=== PATIENT | female | born 1950 | race Caucasian/White ===

== ENCOUNTER → 2016-08-01 | Outpatient (CLI) | payer MEDICARE ==
[~2016-08-01] MED LIST: NO MEDICATIONS
--- NOTE | ~2016-08-01 | ST ---
Unit #: [id number] #: [id number] Patient: GEM HARGROVE [id number] [address] [address] [id number] O MR#: [id number] NAME: GEM HARGROVE : 1950 SEX: F STUDY DATE/TIME: UNIT: [facility] ROOM: STUDY DESCRIPTION: Stress Test Attending Physician: César Witt M.D. Referring Physician: César Witt M.D. Primary Care Physician: Yoan Elkins M.D. CARDIOLOGY REPORT EXAM Walking Lexiscan Cardiolite Stress Test DESCRIPTION Baseline EKG - normal sinus rhythm with ventricular rate 75 beats/minute, first degree AV block, Q waves in V1 and V2, left ventricular hypertrophy, repolarization, some ST-T wave elevation, some poor R wave progression, some nonspecific ST-T wave abnormalities in inferior lateral leads. Lexiscan is a four minute test with Lexiscan being injected within the first minute followed by Cardiolite. EKG during the test continues to show some ST-T wave abnormalities, especially in lateral leads. Had a 0.[address] depression in lateral leads. The patient had no complaints of chest pain or palpitations. Did complain of some dizziness. Blood pressure dropped from 122/82 to 98/60 mmHg. At the end of recovery phase, patient's blood pressure was increased to 113/65 and the dizziness resolved. Maximum heart rate response was 116 beats/minute with a maximum blood pressure response of 140/80 mmHg. Cardiolite was injected after Lexiscan within the first minute of the test. Radionuclide test pending. Please correlate with nuclear images. Dictated by... Nathalia Chin A.P.R.N. for Drew Gamboa/danni TD: 08/01/2016 11:46 JOB #: [id number] Unit #: [id number] #: [id number] Patient: GEM HARGROVE CARDIOLOGY REPORT X Nathalia Chin APRN CARDIOLOGY REPORT
--- NOTE | ~2016-08-01 | TH ---
Unit #: [id number] #: [id number] Patient: GEM HARGROVE [id number] [address] [address] [id number] O MR#: [id number] NAME: GEM HARGROVE : 1950 SEX: F STUDY DATE/TIME: 08/01/2016 UNIT: [facility] ROOM: STUDY DESCRIPTION: Attending Physician: César Witt M.D. Referring Physician: César Witt M.D. Primary Care Physician: Yoan Elkins M.D. CARDIOLOGY REPORT EXAM Lexiscan Cardiolite stress test, nuclear portion. PROCEDURE Using technetium 99m labeled Cardiolite, rest and stress SPECT images were obtained. Multiple SPECT images were obtained in various views including horizontal and vertical long axis and short axis views of the left ventricle. Images were obtained by gated SPECT method. The patient was administered 11.65 mCi of Cardiolite at rest. The patient was administered 31.9 mCi of Cardiolite after Lexiscan infusion was completed. On the stress images, there is normal perfusion noted. The rest images showed normal perfusion. Comparing rest and stress images, there is no stress-induced ischemia noted. The left ventricular ejection fraction is calculated to be 68%. There is no focal wall motion abnormality seen. CONCLUSION 1. No stress-induced ischemia noted. 2. The left ventricular ejection fraction is calculated to be 68%. 3. There is no focal wall motion abnormality seen. 4. Normal Lexiscan Cardiolite stress test. 5. Technically somewhat limited study due to increased gut uptake. Clinical correlation is requested. Dictated by... Drew Gamboa TD: 08/01/2016 13:43 JOB #: [id number] CC: Yoan Elkins M.D. CARDIOLOGY REPORT X Jaz Orr MD <ELECTRONICALLY SIGNED> 12/10/16 1429 CARDIOLOGY REPORT
== END | disposition home or self-care (01) ==
LOC: CNUC 08:11
DX: R06.02 Shortness of breath (principal); R94.31 Abnormal electrocardiogram [ECG] [EKG]
CPT/HCPCS: 78452; 93017; A9500; J2785

== ENCOUNTER → 2016-10-24 | Outpatient (CLI) | payer MEDICARE | END | disposition home or self-care (01) | LOC: CSSDAY 10:00 | DX: M81.0 Age-related osteoporosis without current pathological fracture (principal) | CPT/HCPCS: 96372; J0897 ==

== ENCOUNTER → 2017-01-17 | Outpatient (CLI) | payer MEDICARE ==
--- NOTE | ~2017-01-17 | MY29 ---
[facility] A Service of [facility] RADIOLOGY TEXT RESULTS PATIENT: GEM HARGROVE LOCATION: [facility] : [birth year] UNIT #: [id number] AGE: [address]: Yoan Elkins MD SEX: F ORDER DR: [id number] [facility] [address] [facility]. [place], [place] [address] [id number] O MR#: [id number] Acc #: [id number] NAME: GEM HARGROVE : 1950 SEX: F STUDY DATE/TIME: 01/17/2017 12:37 UNIT: [facility] ROOM: STUDY DESCRIPTION: MY [place] SCREENING W/ CAD BILAT Attending Physician: Yoan Elkins M.D. Ordering Physician: Yoan Elkins M.D. Primary Care Physician: Yoan Elkins M.D. MEDICAL IMAGING REPORT This report is preliminary unless electronic signature is present EXAM Bilateral digital screening mammogram with CAD HISTORY Routine screening. No current complaints. No family history of breast cancer. COMPARISON 01/27/2015, 08/25/2006 FINDINGS MLO and CC digital views of each breast were obtained and reviewed with an FDA-approved CAD device. The breasts show scattered fibroglandular densities. There are no masses or abnormal calcifications. IMPRESSION No change and no evidence of malignancy. Patients over the age of 40 are entered into a reminder system with target due date for the next mammogram. A result letter will also be sent to the patient. BIRADS: 1 Negative Dictated by... Jj Ly M.D. THIS IS AN ELECTRONICALLY VERIFIED REPORT Jj Ly M.D. at 01/17/2017 10:08 PM ALEXANDR/gino TD: 01/17/2017 15:57 JOB #: [id number] [facility] A Service of [facility] RADIOLOGY TEXT RESULTS PATIENT: GEM HARGROVE LOCATION: [facility] : [birth year] UNIT #: [id number] AGE: [address]: Yoan Elkins MD SEX: F ORDER DR: MEDICAL IMAGING REPORT Page 1 of 1 COPY
== END | disposition home or self-care (01) ==
LOC: CWCC 11:59
DX: Z12.31 Encounter for screening mammogram for malignant neoplasm of breast (principal)
CPT/HCPCS: G0202